=== PATIENT | male | born 1970 | race Caucasian/White ===

== ENCOUNTER 2021-10-22 15:56 | Observation (INO) | payer OTHER, SELFPAY ==
[2021-10-12 10:38] VITALS: BMI 34.7
--- NOTE | 2021-10-12 10:49 | PC.NURSE ---
Addendum entered by Marjan Wilkinson RN 10/12/21 10:52: TRENT SHOWER MORNING OF SURGERY Original Note: Report to the Outpatient Waiting Room, entrance under the green pavilion located off [facility], at time 1000 on date 10/21/21. OR Time: 1200. - You and your visitor will be asked a series of questions to screen for COVID 19 for your protection. - A mask is required within the hospital. One visitor will be allowed to accompany the patient into the hospital. Patients visitor will be instructed to remain with patient at all times or leave the building. We will allow the visitor to come back to the postoperative area when patient is ready. Preoperative COVID Testing Requirements: No COVID Test needed if: (proof is required; if not received patient will have Rapid Test prior to entry) - Patient has received COVID Vaccine at least 14 days prior to procedure date or - Patient has positive COVID test result within last 90 days of surgery date. COVID Test needed if above criteria is not met Patients may have clear liquids (water, carbonated beverages, clear teas, apple juice) until 3 hours prior to surgery with a maximum of 20 ounces. - No food from midnight until time of surgery Take the following medications with a SIP of water the morning of surgery: NONE Medications to discontinue per physician: N/A Date to take last dose: N/A Please no make-up, nail serbian, hairspray, perfume, deodorant, or body powder the day of surgery. No jewelry (including any body piercings) or valuables the day of surgery, leave them at home. Please take a shower or bath the night before, or the morning of, surgery with an antibacterial soap. Wear comfortable, loose fitting clothing. - Jewelry must be removed prior to entering the operating room. Rings and piercings that are not removed may be cut off. - The hospital will not accept responsibility for valuables. - Please leave all valuables, including medications, at home the day of surgery. If you are going home after surgery, a licensed bobtail driver must drive you home. - NO public transportation without another adult. - We recommend that an adult stay with you for 24 hours following discharge. - We also recommend that you do not drive, make important decision, drink alcoholic beverages, or take any drugs that were not prescribed by your health care provider for at least 24 hours after your discharge time. Follow any additional instructions given to you from your surgeon. Telephone instructions given to CHELE NEUMANN and asked if any additional questions and then verbalized understanding. Patient advised to call surgeon office or pre surgery nurse liaison [phone] if any additional questions.
--- NOTE | 2021-10-20 18:07 | PM.IMHP ---
H&P: HPI History of Present Illness Date/Time: 10/20/21 18:07 Chief Complaint: Abdominal hernias, right flank mass Narrative: Patient is a 51-year-old man who for almost a year has noticed bulging in the area of the umbilicus and just above the umbilicus. He also has noticed a bulge in his right flank. He was seen in the office and found to have umbilical and supraumbilical ventral hernias. He also has a lipoma of the right flank. These hernias are getting larger. They are occasionally arc comfortable or even painful. After discussion, he is taken to surgery now for laparoscopic repair of umbilical and ventral hernias with mesh. He also will have excision of the right flank subcutaneous mass most likely a lipoma. Review of Systems Review of Systems: All systems reviewed & are unremarkable except as noted in HPI and below Constitutional: Constitutional: Denies chills and Denies fever(s) Cardiovascular: Cardiovascular: Denies chest pain, Denies diaphoresis, Denies dyspnea and Denies paroxysmal nocturnal dyspnea Respiratory: Respiratory: Denies chest congestion, Denies cough and Denies dyspnea Integumentary/Breasts: Skin/Breast: Denies lesions and Denies rash [facility] Surgical History Surgical History History of lateral meniscus repair of left knee Approximately 2006 Social History Social History Smoking status: Never smoker Alcohol intake: current Drinks per week: 2 Substance use: never Substance use type: does not use 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 [employer] Spiritual care concerns: No Meds Home Medications and Allergies Home Medications Medication Instructions Recorded Confirmed Type No Home Medications 08/16/21 10/12/21 History Allergies Allergy/AdvReac Type Severity Reaction Status Date / Time No Known Allergies Allergy Verified 10/12/21 10:38 Exam Const: General: comfortable, no acute distress, alert and awake HENMT: Head: normocephalic and atraumatic Mouth: Yes Normal oral and palatal mucosa present Eyes: Conjunctivae: conjunctivae normal Pupils: Equal, round and reactive pupils present EOM: EOMs intact bilaterally Neck: Neck: normal visual inspection, no lymphadenopathy and nontender Resp: Effort & Inspection: normal respiratory effort Auscultation: clear to auscultation bilaterally Cardio: Rate: regular rate Rhythm: regular rhythm Heart sounds: no gallops, no murmurs and no rubs GI: Inspection: non-distended, visible herniation (Umbilical and supraumbilical) and other (Diastasis midline linea alba) GI Palp: Yes Soft to palpation, No Tenderness to palpation present (GI), No Hepatomegaly present, No Splenomegaly present, Yes Hernia present (Reducible umbilical and ventral hernias) and Yes Palpable mass present (5 cm right flank subcutaneous mass consistent with lipoma) Auscultation: normal bowel sounds Skin: Lesions: no lesions Rashes: no rashes Neuro: General: no focal motor deficits and CN's II-XI intact bilaterally Cranial nerves: Yes Equal, round and reactive pupils present, Yes Bilaterally intact EOM present, Yes facial symmetry and Yes Midline tongue present Speech: normal speech Motor exam (neuro): 5/5 motor strength present throughout and Motor abnormalities not present Extrem: General: no clubbing, cyanosis or edema and edema Psych: Affect: normal affect Thought process: Normal thought process present Insight: Good insight present (Psych) Assessment and Plan Assessment and plan (1) Umbilical hernia without obstruction and without gangrene: Code(s): K42.9 - Umbilical hernia without obstruction or gangrene Status: Chronic Assessment and Plan: Plan to laparoscopically repair the midline ventral hernias with mesh. The procedure the risks and benefits have been discussed. The
[2021-10-21] VITALS (13 sets, daily range): BP systolic 112–139; BP diastolic 75–98; PULSE 78–89; RESP 11–20; TEMP 36.6–37.2; O2SAT 92–98
[2021-10-21] MEDS: ACETAMINOPHEN 500 MG TABLET 1000 MG PO (10:33)
[2021-10-21] MEDS: LACTATED RINGERS 1,000 ML 30 ML IV CONT ×2 (11:03→14:17)
[2021-10-21] MEDS: KETOROLAC 15 MG/ML VIAL (*BKC) IV PUSH (11:05)
--- NOTE | 2021-10-21 11:09 | WPDANESEPPF ---
Anes - Initial Pre Proc Eval Procedure: Operation Date: 10/21/21 12:00 Proposed Procedures p Laparoscopic Repair Ventral and Umbilical Hernia, - Rey River MD s Removal of Right Lower Quadrant Lipoma - Rey River MD Date/Time: 10/21/21 11:09 Surgeon: Rey River MD Pre Op Diagnosis: ventral and umbilical hernia, rt lower quad lipoma Patient Data Age: 51 Gender: M Height: 1.88 m Weight: 125.3 kg Last Vital Signs Temp 37.0 C 10/21/21 10:29 Pulse 78 10/21/21 10:29 Resp 16 10/21/21 10:29 BP 126/87 10/21/21 10:29 Pulse Ox 96 10/21/21 10:29 Allergies Allergy/AdvReac Type Severity Reaction Status Date / Time No Known Allergies Allergy Verified 10/21/21 10:31 Home Medications Medication Instructions Recorded Confirmed Type No Home Medications 08/16/21 10/21/21 History Patient hx anesthesia problems: none Family hx anesthesia problems: none Results Review: All pre-operative results and documents have been reviewed as part of the pre-operative evaluation. 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 Informed Consent: The patient's anesthetic plan and its attendant risks and benefits were discussed with the patient/family/POA. Questions were solicited and answers provided to the satisfaction of the patient/family/POA.
--- NOTE | 2021-10-21 11:51 | WPDHPUPDATE1 ---
History and Physical Update Update Date/Time: 10/21/21 11:51 History and Physical has been reviewed, including an updated exam of the patient. There are NO changes in the patient's condition. Risks, benefits, and alternatives have been discussed and questions answered. Patient agrees to proceed with procedure.
[2021-10-21] MEDS: ceFAZolin 3 GM/D5W 100 ML 100 ML IVPB (11:59)
--- NOTE | 2021-10-21 14:34 | W.PM.PROC2 ---
Procedure Note - Detailed Date of Procedure 10/21/21 Pre-op Diagnosis ventral and umbilical hernia, rt flank lipoma Post-op Diagnosis Same Procedure Performed Laparoscopic repair of umbilical and ventral hernia with 15 x [address] mesh; excision 4 cm lipoma right flank Surgeon Rey River MD Treating Plant Supervisor Jeffrey MARIE Anesthesia General and Local (0.25% Marcaine with epinephrine) Indications Patient was seen in the office with a bulge at and above the umbilicus. He also had a subcutaneous mass in the right lower quadrant more in the flank area. Exam showed him to have both an umbilical and a ventral hernia. The subcutaneous mass was consistent with a lipoma. He is taken to surgery now for laparoscopic repair of the ventral hernia as well as excision of the lipoma. Findings The 2 hernias were close to 1 another. The maximal length necessary to cover both hernias was only 4 cm. The maximal width was 3 cm. The lipoma measured 4 cm in its longest dimension Description of Procedure The patient was taken to surgery and induced into general anesthesia. The entire abdomen was prepped and draped including the right flank area where the area of the subcutaneous mass had been marked preoperatively. A left subcostal fairly lateral incision was made 1st. A 5 mm applied Medical optical trocar was placed here under direct vision. We insufflated through this. I then placed another 5 mm port in the subcostal position on the left but much closer to the epigastric area. The hernias were easily seen. There was omentum incarcerated in the hernias. A 10 11 port was placed in the left lower quadrant. Another 5 mm port was placed in the right mid abdomen in anticipation of need for stapling the mesh from the right side later in the surgery. We reduced the omentum stuck in both hernias. That went well. Minimal cautery was needed. The larger hernia was the ventral hernia. I then used a needle and marker and passed the needle through the edges of the hernia so that the general position of the hernia relative to the skin could be marked. A 15 x 20 cm piece of Ventralight ST mesh was chosen. This would provide well over 5 cm of overlap for both the hernias. I positioned the mesh over the marked position of the hernia so that it was symmetric. I marked the outline of the mesh on the skin. I then marked the position of 4 transfascial sutures. I placed 0 [place]Jeff sutures at the long term point on each side of the oval shaped piece of mesh. Four such sutures were placed. The mesh was then rolled and placed in the abdomen through the left lower quadrant 10 11 port. The mesh was unrolled and positioned appropriately. Using the granny suture Passer, I made incisions at each of the 4 transfascial suture sites marked previously. Each end of the transfascial sutures of [place]-Jeff were passed through the abdominal wall with the granny suture Passer. I checked the position of the mesh at the end. The left-sided transfascial suture needed to be rehab positioned closer to the midline. This suture was pulled through the abdominal wall. A more medial incision was made and we brought this suture back out again with the granny needle. Checking the position again, all looked quite good. I reduced all the pressure in the abdomen by stopping insufflation and evacuating CO2. I tied down each of the transfascial sutures. We then reinsufflated the abdomen. The Opti Fix AT Tacker was then used. Double ring technique was used to place each of the absorbable tacks. I did use the right-sided port to place tacks on the left side of the mesh. Eventually the mesh was quite secure with both the suture and the Opti Fix tacks. A photograph was taken intraoperatively of the completed repair. All looked quite good. I then cut off the ends of the transfascial sutures and evacuated CO2. We turned our attention to the right flank subcutaneous mass. This had been marked on the skin preope
[2021-10-21] MEDS: fentaNYL CITRATE INJ (*CRX) 100 MCG/2 ML VIAL 25 MCG IV PUSH ×4 (14:44→15:27)
--- NOTE | 2021-10-21 16:15 | PC.NURSE ---
This patient, Gabriel Nicolas, was admitted to Medical Room 248-. Patient/family oriented to hospital policies and general routines including ID bracelet, bed and alarms, visiting hours, pain management, procedures, bathroom and other care routines, personal items, smoking policy, room service/diet, and visiting hours. Information on how to activate the Rapid Response Team has been discussed. Patient/Family are encouraged to report perceived risks to care and to ask questions if they do not understand what they are told or what they should do.
[2021-10-21] MEDS: HYDROcodone/acetaminophen (*CRX) 10-325 MG TABLET 1 TAB PO (16:50)
[2021-10-21] MEDS: LACTATED RINGERS 1,000 ML 100 ML IV CONT (16:51)
[2021-10-21] MEDS: SENNA/DOCUSATE SODIUM TABLET 2 TAB PO (20:21)
[2021-10-21] MEDS: ENOXAPARIN 30 MG/0.3 ML SYRINGE SUB-Q (20:21)
[2021-10-21] MEDS: FAMOTIDINE 20 MG TABLET PO (20:22)
[2021-10-21] MEDS: MORPHINE SULFATE (*CRX) 2 MG/ML INJ IV PUSH (20:31)
[2021-10-21] MEDS: MORPHINE SULFATE (*CRX) 4 MG/ML INJ IV PUSH (22:23)
[2021-10-22] MEDS: HYDROcodone/acetaminophen (*CRX) 10-325 MG TABLET 1 TAB PO (03:03)
[2021-10-22 05:00] VITALS: BMI 36.8
[2021-10-22 05:16] LABS: Hematocrit 44.3 % (42.0-52.0); Mean Corpuscular HGB Conc 33.9 g/dl (32-36); Mean Corpuscular Hemoglobin 29.7 pg (26-34); Mean Corpuscular Volume 87.7 fl (80-100); Mean Platelet Volume 10.9 fl (7.4-10.4); Platelet Count Result 160 k/mm3 (150-375); Red Blood Count 5.05 M/mm3 (4.6-6.20); Red Cell Distribution Width 13.1 % (11.5-14.5); White Blood Count 9.8 K/mm3 (4.5-10.0)
[2021-10-22 05:29] LABS: Anion Gap 8 mmol/L (8-16); Blood Urea Nitrogen 14 mg/dL (9-20); Calcium 8.1 mg/dL (8.4-10.2); Carbon Dioxide 26 mmol/L (22-30); Chloride 103 mmol/L (98-107); Estimated CRCL calculation 132 ml/min; Estimated Glomerular Filt Rate > 60; Glucose 115 mg/dL (65-110); Potassium 3.7 mmol/L (3.4-5.0); Sodium 137 mmol/L (137-145)
[2021-10-22 06:00] VITALS: BP 123/73; PULSE 73; RESP 20; TEMP 36.3; O2SAT 98
[2021-10-22] MEDS: MORPHINE SULFATE (*CRX) 2 MG/ML INJ IV PUSH (06:42)
[2021-10-22] MEDS: FAMOTIDINE 20 MG TABLET PO ×2 (08:23→20:16)
[2021-10-22] MEDS: polyethylene glycoL 3350 17 GM POWD.PACK PO (08:24)
[2021-10-22] MEDS: ENOXAPARIN 30 MG/0.3 ML SYRINGE SUB-Q ×2 (08:24→20:16)
--- NOTE | 2021-10-22 08:40 | WPDANESPN ---
Anes - Prog Note Post-Op Date/Time: 10/22/21 08:40 Cardiovascular status: normal Respiratory status: normal Airway patency: baseline Mental status: baseline Post-Op hydration status: normal Vital Signs: Last Vital Signs Temp 36.3 C L 10/22/21 06:00 Pulse 73 10/22/21 06:00 Resp 20 10/22/21 06:00 BP 123/73 10/22/21 06:00 Pulse Ox 98 10/22/21 06:00 Pain Score (VAS): 0 I/O: Intake & Output 10/21/21 10/22/21 10/22/21 23:59 07:59 15:59 Intake Total 40 360 480 Output Total 400 600 Balance -360 -240 480 Laboratory Tests 10/22/21 04:50 10/22/21 04:50 10/22/21 10/22/21 04:50 04:50 WBC 9.8 RBC 5.05 Hgb 15.0 Hct 44.3 MCV 87.7 MCH 29.7 MCHC 33.9 RDW 13.1 Plt Count 160 MPV 10.9 H Sodium 137 Potassium 3.7 Chloride 103 Carbon Dioxide 26 Anion Gap 8 BUN 14 Creatinine 0.80 Estim Creat Clear Calc 132 Estimated GFR > 60 Glucose 115 H Calcium 8.1 L Post-procedural complaints: none Patient Feedback: Patient satisfied with anesthetic care.
[2021-10-22] MEDS: HYDROcodone/acetaminophen (*CRX) 5-325 MG TABLET 1 TAB PO ×3 (09:20→18:57)
[2021-10-22 14:25] VITALS: BP 116/68; PULSE 85; RESP 18; TEMP 36.7; O2SAT 96
--- NOTE | 2021-10-22 15:07 | PM.PNGS ---
Progress Note: A&P Assessment and Plan (1) Ventral hernia without obstruction or gangrene: Code(s): K43.9 - Ventral hernia without obstruction or gangrene Status: Chronic Assessment and Plan: Discussed the surgery thoroughly and the plans for further care including the length of recovery and expectations as patient progresses in his recovery. He is still having quite a bit of incisional pain. Will continue his care in the hospital again today. I explained he may need to be here another day or 2 yet. Continue ambulation and advance to regular diet. Repair is intact and overall he is doing quite well. (2) Umbilical hernia without obstruction and without gangrene: Code(s): K42.9 - Umbilical hernia without obstruction or gangrene Status: Chronic (3) Abdominal mass, RLQ (right lower quadrant): Code(s): R19.03 - Right lower quadrant abdominal swelling, mass and lump Status: Chronic Assessment and Plan: Explain findings were consistent with lipoma. Subjective Subjective Date/Time Seen: 10/22/21 15:07 Post Op day: 1 Patient reports: still having pain, tolerating liquids well, no flatus and no bowel movement Interval history: Patient requiring intermittent doses of morphine sulfate and a great deal of difficulty getting out of bed. Review of Systems Review of Systems: All systems reviewed & are unremarkable except as noted in HPI and below ( HPI and those items noted below) Constitutional: Constitutional: Denies chills, Denies fever(s), Denies headache(s), Reports lethargy and Denies poor appetite ENT: Denies headache(s) Cardiovascular: Cardiovascular: Denies chest pain and Denies dyspnea Respiratory: Respiratory: Denies cough and Denies dyspnea Gastrointestinal: Gastrointestinal: Reports as per HPI, Reports abdominal pain ( incisional), Denies heartburn, Denies diarrhea, Denies nausea and Denies vomiting Exam Const: General: comfortable and no acute distress; No confusion Orientation/consciousness: patient oriented x3 and No confusion GI: Inspection: non-distended, incision ( all incisions dry and healing well) and obesity ( protuberant abdomen) GI Palp: Yes Soft to palpation, Yes Tenderness to palpation present (GI) ( diffuse incisional tenderness), No Guarding due to palpation present (GI), No Hernia present, No Palpable mass present and No Rebound tenderness present Neuro: General: patient oriented x3, no focal motor deficits and No confusion Extrem: General: no calf tenderness and no edema Psych: Affect: normal affect Insight: Good insight present (Psych) Judgement: Good judgement present (Psych) Objective Data Vital Signs Vital Signs: Vital Signs - 24 hr 10/21/21 15:16 10/21/21 15:31 10/21/21 17:15 Temperature 37.2 C Pulse Rate 81 88 86 Respiratory Rate 13 16 16 Blood Pressure 134/89 125/90 112/79 Pulse Oximetry 93 94 95 10/21/21 17:30 10/21/21 18:00 10/21/21 19:00 Temperature 37.1 C 37.1 C 37.1 C Pulse Rate 87 82 89 Respiratory Rate 16 16 16 Blood Pressure 115/75 122/79 121/81 Pulse Oximetry 96 97 96 10/21/21 20:00 10/21/21 22:00 10/22/21 06:00 Temperature 36.8 C 36.3 C L Pulse Rate 89 86 73 Respiratory Rate 16 18 20 Blood Pressure 125/80 123/73 Pulse Oximetry 96 96 98 10/22/21 14:25 Temperature 36.7 C Pulse Rate 85 Respiratory Rate 18 Blood Pressure 116/68 Pulse Oximetry 96 Intake/Output Intake/Output: Intake & Output 10/19/21 10/20/21 10/21/21 10/22/21 23:59 23:59 23:59 23:59 Intake Total 640 960 Output Total 400 600 Balance 240 360 Meds/Results Medications: Active Medications Generic Name Dose Route Start Last Admin Trade Name Freq PRN Reason Stop Dose Admin Acetaminophen 500 mg 10/21/21 15:41 Acetaminophen 500 Mg Tablet PO Q6H PRN Mild Pain (1-3) or Fever Hydrocodone Bitart/Acetaminophen 1 tab 10/21/21 15:41 10/22/21 13:23 Hydrocodone/Acetaminophen (*Crx) 5-325 Mg Tablet
[2021-10-22] MEDS: SENNA/DOCUSATE SODIUM TABLET 2 TAB PO (20:15)
[2021-10-22 20:20] VITALS: BP 131/80; PULSE 82; RESP 16; TEMP 36.8; O2SAT 97
[2021-10-23 06:00] VITALS: BP 142/90; PULSE 84; RESP 14; TEMP 36.9; O2SAT 96
[2021-10-23] MEDS: HYDROcodone/acetaminophen (*CRX) 10-325 MG TABLET 1 TAB PO ×2 (06:59→13:21)
[2021-10-23] MEDS: polyethylene glycoL 3350 17 GM POWD.PACK PO (08:59)
[2021-10-23] MEDS: FAMOTIDINE 20 MG TABLET PO (08:59)
[2021-10-23] MEDS: ENOXAPARIN 30 MG/0.3 ML SYRINGE SUB-Q (08:59)
--- NOTE | 2021-10-23 11:00 | PM.DS ---
DS: Admitting Diagnosis Discharge Date 10/23/2021 Admitting Diagnosis ventral and umbilical hernias, right flank lipoma DS: Discharge Diagnosis Discharge Diagnosis (1) Ventral hernia without obstruction or gangrene: Code(s): K43.9 - Ventral hernia without obstruction or gangrene Status: Chronic Assessment and Plan: s/p lap repair c mesh, cont routine postop care and activity restrictions, rx for pain medication, f/u 2 wks (2) Umbilical hernia without obstruction and without gangrene: Code(s): K42.9 - Umbilical hernia without obstruction or gangrene Status: Chronic Assessment and Plan: see above (3) Abdominal mass, RLQ (right lower quadrant): Code(s): R19.03 - Right lower quadrant abdominal swelling, mass and lump Status: Chronic Assessment and Plan: routine postop care (4) BMI 37.0-37.9, adult: Code(s): Z68.37 - Body mass index [BMI] 37.0-37.9, adult Status: Acute Assessment and Plan: dietary and lifestyle modifications DS: Summary Hospital Course Reason for hospitalization: Ventral and umbilical hernia, right flank lipoma Hospital Course: The patient is a 51-year-old male presenting to the hospital for repair of ventral and umbilical hernia, excision right flank lipoma. The patient had laparoscopic ventral and umbilical hernia repair with mesh and excision right flank lipoma by Dr. River on 10/21/2021, please see full operative report for details of that procedure. Postoperatively the patient did well and was transferred to the surgical floor. On postoperative day 1., the patient was complaining of significant pain especially with movement. He also was complaining about poor appetite and abdominal distension. It was decided to keep him another day for additional observation. On postoperative day 2. , the patient was feeling much better and ambulating well. His pain was much better controlled on p.o. analgesia. The patient was passing flatus and tolerating a diet. He will be discharged home with p.o. analgesia and follow-up with Dr. River in 2 weeks. Status at Discharge Functional status at discharge: independent ambulation Overall status at discharge: patient is progressing back to baseline Time Spent with Patient Time attestation: Total time spent providing and/or coordinating discharge services: Time spent: Less than 30 minutes Exam Const: General: cooperative, comfortable and no acute distress Nutritional Appearance: obese Orientation/consciousness: patient oriented x3 HENMT: Head: normal to inspection, normocephalic and atraumatic Ears: hearing grossly normal bilaterally Resp: Auscultation: clear to auscultation bilaterally Cardio: Rate: regular rate Rhythm: regular rhythm GI: Inspection: normal to inspection, distended and incision GI Palp: Yes abdominal tenderness, Yes Soft to palpation, Yes Tenderness to palpation present (GI), No Guarding due to palpation present (GI) and No Rigid due to palpation DS: Data Data Completed and Pending Pending studies at discharge: Pending at discharge 10/21/21 13:36 Surgical [PTH] Routine Discharge Plan Discharge Attending physician on discharge: Rey River Discharging Clinician: Audra Cramer Patient Disposition: Home, Self-Care Activity: may shower, no straining and as tolerated Diet: regular Wound Care Instructions: incision open to air Discharge Instructions: Ambulate 3-4 x per day and as tolerated. No lifting over 15-20lbs. May bathe or shower. Stairs are OK. May drive a car in 3 days. call for severe pain, nausea and vomiting, fever over 100.5?, or other significant change in condition. Stand Alone Forms: General Discharge Instructions Follow-up/Referrals: Rey River MD [Physician] - 2 Weeks Discharge Medications: New hydrocodone-acetaminophen 5-325 mg tablet 1 - 2 tablet PO Q6H PRN (Reason: pain) Qty: 25 RF: 0 ketorolac
== END 2021-10-23 14:25 | disposition home or self-care (01) ==
LOC: ANHSURGERY 15:59 → ANH2MED 16:30
PROVIDERS: Admitting Provider Surgery; PCP Family Medicine; Visit Provider Surgery
PROC: (CPT 49652; principal; 2021-10-21 12:00)
PROC: (CPT 49652; 2021-10-21 12:00)
DX: K43.9 Ventral hernia without obstruction or gangrene (principal); K42.9 Umbilical hernia without obstruction or gangrene; D17.1 Benign lipomatous neoplasm of skin and subcutaneous tissue of trunk; G89.18 Other acute postprocedural pain; E66.9 Obesity, unspecified; Z68.36 Body mass index [BMI] 36.0-36.9, adult
CPT/HCPCS: 49652; 22903; 36415; 80048; 85027; 88304; A9270; C1781; G0378; J0690; J1100; J1650; J1885; J2250; J2270; J2405; J2704; J2710; J3010; J7120

== ENCOUNTER 2021-12-26 11:12 | Emergency (ER) | payer OTHER, SELFPAY ==
[2021-12-26 11:23] VITALS: BP 128/82; PULSE 87; RESP 16; TEMP 36.1; O2SAT 99
--- NOTE | 2021-12-26 12:06 | ED.GENADULT ---
HPI - General Adult General Chief complaint: Upper Respiratory Infection Stated complaint: COUGH/CONGESTION/SORE THROAT Source: patient Mode of arrival: ambulatory Limitations: no limitations History of Present Illness HPI narrative: Patient presents for evaluation of respiratory symptoms for the past three days. Symptoms include sore throat, thick yellow nasal discharge, productive cough of yellow sputum. No nausea, vomiting, diarrhea, body aches and SOB. His daughter was here today and tested positive for strep. However she was out of town in [place] at the time when patient began experiencing symptoms. He does not smoke. He has had COVID in past. He has received his COVID vaccination and one booster. Related Data Home Medications Medication Instructions Recorded Confirmed fluticasone propionate 50 intranasal 12/26/21 mcg/actuation nasal spray,suspension Allergies Allergy/AdvReac Type Severity Reaction Status Date / Time No Known Allergies Allergy Verified 12/26/21 11:25 Review of Systems Review of Systems: CONSTITUTIONAL: Denies fever, chills, or sweats. EYES: Denies visual changes, redness, or discharge. ENT: Denies rhinorrhea, congestion, sore throat, or otalgia. CARDIOVASCULAR: Denies chest pain, palpitations, or edema. RESPIRATORY: Reports productive cough of yellow sputum. Denies SOB. GASTROINTESTINAL: Denies abdominal pain, nausea, vomiting, or diarrhea. GENITOURINARY: Denies dysuria or hematuria. SKIN: Denies rash or itching. MUSCULOSKELETAL: Denies back pain, joint pain, or myalgia. NEUROLOGIC: Reports headache. Denies numbness, dizziness, or weakness. PSYCHIATRIC: Denies anxiety or depression. 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 HEAD: Normocephalic, atraumatic. EYES: PERRLA and EOMI. ENT: Nares clear, no rhinorrhea or epistaxis. Mucous membranes moist. Oropharynx without tonsillar hypertrophy exudate or other lesions. Bilateral TMs pearly hager nonbulging NECK: Supple. No adenopathy or masses. No carotid bruits or JVD CHEST: Clear to auscultation. Cough present on exam. No respiratory distress. No wheezes rales or rhonchi HEART: Regular rate and rhythm. No murmur heard. Normal peripheral pulses. ABDOMEN: Soft, nontender, nondistended, normal active bowel sounds. EXTREMITIES: Normal range of motion. No edema. SKIN: Warm, dry, no rash. NEURO: No focal deficits. Alert and oriented x3. PSYCH: Normal mood and affect. Course Course Emergency Course: This is a 51-year-old male who present with complaints of sore throat and respiratory symptoms. Strep was negative. However his daughter was here and was being treated for strep. I did offer to check a chest x-ray which he declined. Will dc on augmentin as that would treat for sinusitis and pharyngitis. Will also dc with mucinex dm. Will have him follow up outpatient for further evaluat
== END 2021-12-26 12:58 | disposition home or self-care (01) ==
PROVIDERS: Emergency Provider Nurse Practitioner; PCP Family Medicine
DX: J02.9 Acute pharyngitis, unspecified (principal)
CPT/HCPCS: 87081; 87880; 99213; G0463

== ENCOUNTER 2023-08-28 16:00 | Emergency (ER) | payer OTHER, SELFPAY ==
[2023-08-28 16:08] VITALS: BP 132/88; PULSE 84; RESP 16; TEMP 36.6; O2SAT 98
--- NOTE | 2023-08-28 16:32 | ED.SKABFB ---
HPI - Skin/Abscess/Foreign Bdy General Chief complaint: Skin/Abscess/Foreign Body Stated complaint: Dry/Itchy skin Time Seen by Provider: 08/28/23 16:14 Source: patient and RN notes reviewed Mode of arrival: ambulatory Limitations: no limitations History of Present Illness HPI narrative: Patient presents today complaining of dry itchy skin to his groin x 2-3 weeks. He has tried some lotion without relief. He also believes that he has spread this to his bilateral eyelids as he has some flaking dry skin there as well. He has had jock itch before believes he had some prescription cream for this but does not know the name. Patient also states he gets a rash approximately once yearly to his chest and back that his doctor describes as a fungal infection and he gets an oral medication prescribed by his PCP, but does not know the name. Related Data Allergies Allergy/AdvReac Type Severity Reaction Status Date / Time No Known Allergies Allergy Verified 08/28/23 16:05 Review of Systems Review of Systems: CONSTITUTIONAL: Denies body aches, fever, chills, or sweats. EYES: Denies visual changes, redness, or discharge. ENT: Denies rhinorrhea, congestion, sore throat, or otalgia. CARDIOVASCULAR: Denies chest pain, palpitations, or edema. RESPIRATORY: Denies cough or dyspnea. GASTROINTESTINAL: Denies abdominal pain, nausea, vomiting, or diarrhea. GENITOURINARY: Denies dysuria or hematuria. SKIN: + rash to chest, groin, bilateral eyelids MUSCULOSKELETAL: Denies back pain, joint pain, or myalgia. NEUROLOGIC: Denies headache, numbness, tingling, or weakness. PSYCH: Denies depression or anxiety. 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 Please see nursing chart for further information. There is no relevant family history pertinent to the presenting complaint Exam Narrative: GENERAL: Well-appearing, well-nourished, and in no acute distress. HEAD: Normocephalic, atraumatic. EYES: EOMI. No redness or drainage. Conjunctivae normal. ENT: Mucous membranes pink and moist. NECK: Normal AROM. CHEST: No respiratory distress. EXTREMITIES: Normal range of motion. No edema. SKIN: Warm, dry. Small area of pinkness with fissuring and flaking to the anterior scrotum, measuring 0.5x0.5cm. No other rashes, redness to the groin area. NEURO: No focal deficits. Alert and oriented x3. Gait steady. PSYCH: Normal affect. No signs of depression or anxiety. Course Course Level of Care: Express Care Visit Vital Signs Vital signs: Vital Signs Temperature 98 F 08/28/23 16:08 Pulse Rate 84 08/28/23 16:08 Respiratory Rate 16 08/28/23 16:08 Blood Pressure 132/88 08/28/23 16:08 Pulse Oximetry 98 08/28/23 16:08 Oxygen Delivery Room Air 08/28/23 16:08 Temperature 98 F 08/28
== END 2023-08-28 16:40 | disposition home or self-care (01) ==
PROVIDERS: Emergency Provider Nurse Practitioner; PCP Family Medicine
DX: B36.0 Pityriasis versicolor (principal); B35.6 Tinea cruris
CPT/HCPCS: 99213; G0463

== ENCOUNTER 2024-06-24 12:49 | Outpatient (CLI) | payer OTHER, SELFPAY ==
[2024-06-24 14:40] LABS: Hemoglobin A1C 5.2 % (<5.7)
[2024-06-24 14:59] LABS: Prostate Specific Antigen 3.1 ng/mL (< OR = 4.0)
== END 2024-06-24 12:50 | disposition home or self-care (01) ==
LOC: ANHGOSHLAB 12:54
PROVIDERS: PCP Family Medicine
DX: Z12.5 Encounter for screening for malignant neoplasm of prostate (principal)
CPT/HCPCS: 36415; 83036; 84153; G0103

== ENCOUNTER 2025-05-22 13:34 | Emergency (ER) | payer OTHER, SELFPAY ==
[2025-05-22 14:00] VITALS: BP 112/86; PULSE 95; RESP 16; TEMP 36.7; O2SAT 98
[2025-05-22 14:20] LABS: EDCOVIDSCREEN Negative (Negative); EDINFLUASCREEN Negative (Negative); EDINFLUBSCREEN Negative (Negative); EDSTREPNEGPOS1 Negative (Negative)
--- NOTE | 2025-05-22 15:04 | ED.URI ---
HPI - URI/Sore Throat General Chief Complaint: Upper Respiratory Infection Stated Complaint: Sinus Infection Symptoms Time Seen by Provider: 05/22/25 14:56 Source: patient and RN notes reviewed Mode of arrival: ambulatory Limitations: no limitations History of Present Illness HPI Narrative: 55-year-old male patient presents today with a 2 day history of productive cough, rhinorrhea, body aches, sore throat, congestion and sinus pressure, postnasal drainage. Denies fever or shortness of breath. He has been taking allergy medication and pain reliever without much improvement. No history of asthma or COPD. He is a nonsmoker. was diagnosed with strep throat last week. Related Data Home Medications ?Medication ?Instructions ?Recorded ?Confirmed ?Last Taken ?Type aspirin 81 mg tablet,delayed 81 mg PO DAILY 05/22/25 05/22/25 Unknown History release (Adult Low Dose Aspirin) rosuvastatin 5 mg tablet mg 05/22/25 Unknown History semaglutide (weight loss) 1 mg/0.5 mg subcut 05/22/25 Unknown History mL subcutaneous pen injector (Wegovy) Allergies Allergy/AdvReac Type Severity Reaction Status Date / Time No Known Allergies Allergy Verified 05/22/25 13:58 [facility] Past Medical History Medical History Umbilical hernia Surgical History Surgical History H/O umbilical hernia repair H/O ventral hernia repair History of lateral meniscus repair of left knee Approximately 2006 Family History Family History Father Heart disease Social History Social History Smoking status: Never smoker Second hand tobacco smoke exposure: No Alcohol intake: current Drinks per week: 2 Substance use: never Substance use type: does not use Living arrangements: with family Occupation/Education: occupation 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 Please see nursing chart for further information. There is no relevant family history pertinent to the presenting complaint Exam Narrative: GENERAL: Mildly ill-appearing, well-nourished, and in no acute distress. HEAD: Normocephalic, atraumatic. EYES: EOMI. No redness or drainage. Conjunctivae normal. ENT: Mucous membranes pink and moist. Nares congested but rhinorrhea. TMs normal bilaterally. Throat mildly erythematous without edema or exudate. Uvula midline. NECK: Normal AROM. Supple. No lymphadenopathy. CHEST: No respiratory distress. Clear to auscultation. HEART: Regular rate and rhythm. No murmur appreciated. EXTREMITIES: Normal range of motion. No edema. SKIN: Warm, dry, no rash. Capillary refill normal. Normal skin turgor. NEURO: No focal deficits. Alert and oriented x3. Gait steady. PSYCH: Normal affect. No signs of depression or anxiety. Course Course Level of Care: Express Care Visit Vital Signs Vital signs: Vital Signs Temperature 98.1 F 05/22/25 14:00 Pulse Rate 95 05/22/25 14:00 Respiratory Rate 16 05/22/25 14:00 Blood Pressure 112/86 05/22/25 14:00 Pulse Oximetry 98 05/22/25 14:00 Temperature 98.1 F 05/22/25 14:00 Pulse Rate 95 05/22/25 14:00 Respiratory Rate 16 05/22/25 14:00 Blood Pressure 112/86 05/22/25 14:00 Pulse Oximetry 98 05/22/25 14:00 Reviewed MDM - URI/Sore Throat MDM Narrative Medical decision making narrative: 55-year-old male patient presents today with a 2 day history of productive cough, rhinorrhea, body aches, sore throat, congestion and sinus pressure, postnasal drainage. Denies fever or shortness of breath. He has been taking allergy medication and pain reliever without much improvement. Upon exam, patient is mildly ill appearing with nasal congestion, rhinorrhea, mildly erythematous throat. COVID, influenza, and rapid strep are negative. Strep culture pending. Symptoms likely viral in etiology. Discussed [id number] medication use and duration of illness. No prescription medications indicated at this time. Anticipatory guidance given. Vital signs stable. Patient agrees with plan. Differential Diagnosis Differential diagnosis: Likely upper respiratory infection, otitis media, sinusitis, viral infection, influenza, pharyngitis and other (Strep throat, COVID) Lab Data Attestation: I reviewed the patient's lab results. Labs: Lab Results 05/22/25 Range/Units 14:18 POC Influenza A Ag Negative (Negative) POC Influenza B Ag Negative (Negative) POC SARS CoV-2 Ag Negative (Negative) POC Grp A Strep Screen Negative (Negative) Critical Care Time Critical Care Time Critical Care Time: No Discharge Plan Discharge Clinical Impression: Upper respiratory infection Qualifiers: URI type: unspecified URI Qualified Code(s): J06.9 - Acute upper respiratory infection, unspecified Patient Disposition: Home Condition: Stable Instructions: Upper Respiratory Infection (DC) Additional Instructions: Your influenza, COVID-19, and rapid strep swab were negative today at [facility]. You will be notified in a few days if the culture comes back positive for strep, and appropriate antibiotics will be called in for you at that time. Your symptoms are likely due to a viral illness, which is not treated with antibiotics. Viral symptoms can be present for up to 7-10 days. Take Tylenol or ibuprofen for fever or pain. Consider starting Flonase to help with your nasal congestion, postnasal drip. Rest and stay hydrated. Follow up with your PCP in 7 days if symptoms are not improving. Go to the ER immediately if you have any difficulty breathing or swallowing. Patient Language: Taiwanese Prescriptions: No Action rosuvastatin 5 mg tablet Wegovy 1 mg/0.5 mL pen injector SUBCUT aspirin [Adult Low Dose Aspirin] 81 mg tablet,delayed release (DR/EC) 81 mg PO DAILY Follow-up/Referrals: Holland,MD Claude [Primary Care Provider, Unknown] Stand Alone Forms: Work/School Release IP Time of Disposition: 15:07
== END 2025-05-22 15:11 | disposition home or self-care (01) ==
PROVIDERS: Emergency Provider Nurse Practitioner; PCP Family Medicine
DX: J06.9 Acute upper respiratory infection, unspecified (principal); Z79.82 Long term (current) use of aspirin; Z79.899 Other long term (current) drug therapy; Z20.822 Contact with and (suspected) exposure to COVID-19
CPT/HCPCS: 87081; 87426; 87804; 87880; 99213; G0463